=== PATIENT | male | born 1995 | race American Indian/Alaskan Native ===

== ENCOUNTER 2017-08-25 10:59 | Emergency (ER) | payer BC ==
[2017-08-25 11:32] VITALS: BP 134/79
[2017-08-25] MEDS ORDERED: ZITHROMAX PO ONE (12:24)
[2017-08-25] MEDS ORDERED: ROCEPHIN IM ONE (12:24)
[2017-08-25] MEDS ORDERED: XYLOCAINE 1% MPF 5 mL INFILTRATI ONE (12:24)
--- NOTE | 2017-08-25 12:24 | Emergency Department Report ---
ED Male HPI - General Chief complaint: Urogenital-Male Stated complaint: CANT URINATE Time Seen by Provider: 08/25/17 11:51 Source: patient Mode of arrival: Ambulatory Limitations: No Limitations - History of Present Illness Initial comments: 21M PMH none p/w c/o finding out today that he had + chlamydia test and positive hepatitis C titer. Patient states that he went to an outpatient lab Center and requested to be tested for STDs. States that Chlamydia gonorrhea test was positive and hepatitis C titer was positive. Patient is awake alert and oriented 3 not in acute distress. States that he has had 2-3 weeks of intermittent urethral discharge. Denies abdominal pain fever chills nausea or vomiting. Denies any yellowing of his skin or scleral icterus. Patient states he has had 1-2 unprotected sex partners in the last 6 months. Denies any previous history of STDs. Dates he has slight burning with urination and yellowish whitish discharge from tip of penis. MD Complaint: penile discharge Onset/Timin -: week(s) Location: penis Severity: moderate Quality: burning Worsens with: urination discharge - Related Data Allergies Allergy/AdvReac Type Severity Reaction Status Date / Time No Known Allergies Allergy Unverified 08/25/17 11:32 ED Review of Systems ROS: Stated complaint: CANT URINATE Other details as noted in HPI Comment: positive hepatitis C test Constitutional: denies: chills, fever Eyes: denies: eye pain, eye discharge, vision change ENT: denies: ear pain, throat pain Respiratory: denies: cough, shortness of breath, wheezing Cardiovascular: denies: chest pain, palpitations Endocrine: no symptoms reported Gastrointestinal: denies: abdominal pain, nausea, diarrhea Genitourinary: discharge (3 weeks of urethral discharge). denies: urgency, dysuria Musculoskeletal: denies: back pain, joint swelling, arthralgia Skin: denies: rash, lesions Neurological: denies: headache, weakness, paresthesias Psychiatric: denies: anxiety, depression Hematological/Lymphatic: denies: easy bleeding, easy bruising ED Past Medical Hx - Past Medical History Previous Medical History?: No - Surgical History Past Surgical History?: No - Social History Smoking Status: Never Smoker Substance Use Type: None ED Physical Exam - General Limitations: No Limitations General appearance: alert, in no apparent distress - Head Head exam: Present: atraumatic, normocephalic - Eye Eye exam: Present: normal appearance, PERRL, EOMI, other (patient does not have any scleral icterus at this time) - ENT ENT exam: Present: mucous membranes moist - Neck Neck exam: Present: normal inspection - Respiratory Respiratory exam: Present: normal lung sounds bilaterally. Absent: respiratory distress - Cardiovascular Cardiovascular Exam: Present: regular rate, normal rhythm. Absent: systolic murmur, diastolic murmur, rubs, gallop - GI/Abdominal GI/Abdominal exam: Present: soft, normal bowel sounds - Rectal Rectal exam: Present: deferred - exam: Present: urethral discharge (positive whitish yellowish urethral discharge) - Extremities Exam Extremities exam: Present: normal inspection - Back Exam Back exam: Present: normal inspection - Neurological Exam Neurological exam: Present: alert, oriented X3 - Psychiatric Psychiatric exam: Present: normal affect, normal mood - Skin Skin exam: Present: warm, dry, intact, normal color. Absent: rash ED Course Vital Signs 08/25/17 11:21 Temperature 98.5 F Pulse Rate 88 Respiratory 18 Rate Blood Pressure 134/79 ED Medical Decision Making - Medical Decision Making A/P: Positive gonorrhea test, clinical urethritis, positive hepatitis C titer 1-will treat patient empirically for chlamydia and gonorrhea with azithromycin and ceftriaxone as he states he had a positive urine test for these. 2-I provided patient with information on basic understanding of hepatitis C. I emphasized the importance of follow-up with primary care and infectious disease so the patient can receive outpatient treatment for hepatitis C. At this time patient has no abdominal pain no nausea no vomiting denies any fevers or chills. No clinical icterus of the sclera or jaundice on clinical exam. I advised patient to return to the ED if he develops jaundice and educated him on signs and symptoms of jaundice. 3-vital signs stable before discharge Critical care attestation.: If time is entered above; I have spent that time in minutes in the direct care of this critically ill patient, excluding procedure time. ED Disposition Clinical Impression: Positive hepatitis test, Gonorrhea in male Disposition: DC-01 TO HOME OR SELFCARE Is pt being admited?: No Does the pt Need Aspirin: No Condition: Stable Instructions: Gonococcal Urethritis (ED), Viral Hepatitis C (ED) Additional Instructions: [email or web address] Referrals: PRIMARY CAREMD [Primary Care Provider] - 3-5 Days [facility] [Outside] - 3-5 Days [facility] [Outside] - 3-5 Days MORTEZA CABRERA MD [Staff Physician] - 3-5 Days Forms: Work/School Release Form(ED) Time of Disposition: 12:30
== END 2017-08-25 13:20 | disposition home or self-care (01) ==
LOC: ED 10:59
DX: A54.9 Gonococcal infection, unspecified (principal); K75.9 Inflammatory liver disease, unspecified
CPT/HCPCS: 96372; 99282; J0696

== ENCOUNTER 2017-08-29 21:11 | Emergency (ER) | payer BC ==
[2017-08-29 23:29] VITALS: BP 138/69
[2017-08-30 00:25] LABS: Bilirubin,Urine NEG (Negative); Blood,Urine NEG (Negative); Color,Urine Yellow (Yellow); Protein,Urine <15 mg/dL mg/dL (Negative); Urobilinogen,Urine < 2.0 mg/dL (<2.0)
== END 2017-08-30 03:30 | disposition left against medical advice (07) ==
LOC: ED 21:11
DX: R10.30 Lower abdominal pain, unspecified (principal); Z53.21 Procedure and treatment not carried out due to patient leaving prior to being seen by health care provider
CPT/HCPCS: 81001